=== PATIENT | male | born 2000 | race African-American/Black ===

== ENCOUNTER 2019-12-24 03:33 | Emergency (ER) | payer SELFPAY ==
[2019-12-24 04:13] LABS: Bacteria/HPF None Seen HPF (None Seen); Bilirubin Negative (Negative); Blood, Urine Negative (Negative); Clarity Clear (Clear); Glucose, Urine (Dipstick) Normal (Negative); Leukocyte 250 Leu/uL (Negative); Nitrite Negative (Negative); Protein, Urine (Dipstick) 30 mg/dL (Neg-Trace); RBC/HPF 0-3 HPF (0-3); Squamous Epithelial 0-3 HPF (0-3); Urobilinogen 6 mg/dL (Less than 2); WBC/HPF 21-50 HPF (0-3)
[2019-12-24] MEDS ORDERED: cefTRIAXone\\ROCEPHIN 250 MG VIAL ONE (05:04)
[2019-12-24] MEDS ORDERED: Azithromycin 250 MG TAB ONE (05:04)
[2019-12-24] MEDS ORDERED: Lidocaine 1% PF 5 ML VIAL ONE (05:04)
[2019-12-25 20:40] LABS: Chlam.trachomatis by PCR,Urine DETECTED (NotDetected)
== END 2019-12-24 05:35 | disposition home or self-care (01) ==
LOC: ERS 03:33
DX: A64 Unspecified sexually transmitted disease (principal); R36.9 Urethral discharge, unspecified; F17.210 Nicotine dependence, cigarettes, uncomplicated
CPT/HCPCS: 81003; 81015; 87491; 87591; 96372; 99283; J0696; J2001

== ENCOUNTER 2020-02-19 22:13 | Emergency (ER) | payer SELFPAY ==
[2020-02-19] MEDS ORDERED: Azithromycin 250 MG TAB ONE (22:32)
[2020-02-19] MEDS ORDERED: cefTRIAXone\\ROCEPHIN 1 GM VIAL ONE (22:32)
[2020-02-19] MEDS ORDERED: Lidocaine 1% PF 5 ML VIAL ONE (22:32)
[2020-02-21 19:49] LABS: Chlam.trachomatis by PCR,Urine Not Detected (NotDetected)
== END 2020-02-19 22:59 | disposition home or self-care (01) ==
LOC: ERS 22:13
DX: A54.01 Gonococcal cystitis and urethritis, unspecified (principal); F17.210 Nicotine dependence, cigarettes, uncomplicated
CPT/HCPCS: 87491; 87591; 96372; 99283; J0696; J2001

== ENCOUNTER 2020-06-08 11:50 | Emergency (ER) | payer SELFPAY | END 2020-06-08 12:22 | disposition home or self-care (01) | LOC: ERS 11:50 | DX: R36.9 Urethral discharge, unspecified (principal); F17.210 Nicotine dependence, cigarettes, uncomplicated | CPT/HCPCS: 99281 ==

== ENCOUNTER 2020-06-25 03:56 | Emergency (ER) | payer SELFPAY | END 2020-06-25 04:15 | disposition home or self-care (01) | LOC: ERS 03:56 | DX: N34.1 Nonspecific urethritis (principal); F17.210 Nicotine dependence, cigarettes, uncomplicated | CPT/HCPCS: 99281 ==